=== PATIENT | male | born 1990 | race Caucasian/White ===

== ENCOUNTER 2018-08-09 13:23 | Emergency (ER) | payer SELFPAY ==
[2018-08-09] MEDS ORDERED: Famotidine TAB* 20 MG PO ONE (14:48)
--- NOTE | 2018-08-09 14:56 | UC ---
Abdominal Pain Male HPI - HPI Summary HPI Summary: Mr. Ram had a sudden pain in his upper abdomen while eating about 24 hours prior to presentation. It rapidly got more severe and he began to feel flushed and sweaty and "the johny got bright". That subsided but is been left with an uncomfortable feeling in his left upper quadrant ever since. He's eaten twice today and both times it is aggravated the uncomfortable feeling temporarily. He's been moving his bowels normally and urinating normally. It is not pleuritic and he cannot reproduce it. - History of Current Complaint Chief Complaint: UCGI Stated Complaint: STOMACH PAIN Time Seen by Provider: 08/09/18 13:54 Hx Obtained From: Patient Onset/Duration: Sudden Onset Timing: Constant Severity Initially: Severe Severity Currently: Mild Pain Intensity: 3 Location: Discrete At: LUQ Radiates: No Character: Dull Aggravating Factor(s): Food Alleviating Factor(s): Nothing Associated Signs And Symptoms: Positive: Negative - Allergies/Home Medications Allergies/Adverse Reactions: Allergies Allergy/AdvReac Type Severity Reaction Status Date / Time cefaclor [From [facility]] Allergy Unknown Verified 08/09/18 13:42 Reaction Details Home Medications: Home Medications NK [No Home Medications Reported] 08/09/18 [History Confirmed 08/09/18] PMH/Surg Hx/FS Hx/Imm Hx - Surgical History Surgical History: Yes Surgery Procedure, Year, and Place: appy jan 2018 - Family History Known Family History: Positive: Other - noncont - Social History Alcohol Use: None Substance Use Type: Marijuana Smoking Status (MU): Light Every Day Tobacco Smoker Type: eCigarettes Amount Used/How Often: just quit but using e-cig Review of Systems All Other Systems Reviewed And Are Negative: Yes Constitutional: Positive: Negative Gastrointestinal: Positive: Abdominal Pain, Nausea Genitourinary: Positive: Negative Physical Exam - Summary Physical Exam Summary: He was nontoxic in appearance with stable vital signs. He was generally nontender although he had some mild right upper quadrant tenderness. Triage Information Reviewed: Yes Appearance: Well-Appearing Vital Signs: Initial Vital Signs Temp 98.6 F 08/09/18 13:38 Pulse 84 08/09/18 13:38 Resp 18 08/09/18 13:38 BP 121/72 08/09/18 13:38 Pulse Ox 100 08/09/18 13:38 Vital Signs Reviewed: Yes Abdominal Exam: Other - mild RUQ tenderness Nontender epigastrium or LUQ Diagnostics - Radiology Gallbladder Ultrasound Radiology Interpretation Completed By: Radiologist Summary of Radiographic Findings: No Acute Process Abd Pain Male Course/Dx - Course Course Of Treatment: Mr. Anna had vague symptoms of epigastric pain. He had some mild right upper quadrant tenderness. An ultrasound of his gallbladder was negative. He was given Pepcid by mouth did and didn't feel much different. I'm at a give him some sucralfate for couple days and recommended close follow-up if not improved. - Differential Dx/Clinical Impression Provider Diagnosis: Epigastric abdominal pain Discharge - Sign-Out/Discharge Documenting (check all that apply): Patient Departure All imaging exams completed and their final reports reviewed: Yes - Discharge Plan Condition: Stable Disposition: HOME Patient Education Materials: Epigastric Pain (ED) Referrals: No Primary Care Phys,NOPCP [Primary Care Provider] - [facility] [Outside] Additional Instructions: Please follow up if not improving in the next 1-2 days. The blood pressure was mildly elevated here in the emergency department and this can be followed up also. - Billing Disposition and Condition Condition: STABLE Disposition: Home
[2018-08-09 15:55] VITALS: BP 135/74
== END 2018-08-09 16:50 | disposition home or self-care (01) ==
LOC: UCEAST 13:23
DX: R10.13 Epigastric pain (principal); R10.12 Left upper quadrant pain; R10.811 Right upper quadrant abdominal tenderness; R11.0 Nausea; R60.0 Localized edema; Z88.1 Allergy status to other antibiotic agents; F17.200 Nicotine dependence, unspecified, uncomplicated
CPT/HCPCS: 76705; 99202; A9270-GY; G0463